=== PATIENT | female | born 1995 | race Caucasian/White ===

== ENCOUNTER 2022-03-31 20:07 | Emergency (ER) | payer MEDICAID ==
[~2022-03-31] VITALS: Ht 154.9 cm; Wt 74.8 kg
[2022-03-31 20:10] VITALS: BP_SYST 105
--- NOTE | 2022-03-31 20:14 | NUR ---
Patient triaged and placed in waiting room. VSS and patient appears in no acute distress at this time. Accompanied by DAUGHTER, awaiting available bed, and MD notified of need for MSE.
[2022-03-31 22:52] LABS: BILIRUBIN,URINE NEGATIVE (NEGATIVE); BLOOD, URINE NEGATIVE (NEGATIVE); CLARITY/URINE CLEAR (CLEAR); COLOR,URINE YELLOW (YELLOW); GLUCOSE,URINE NEGATIVE (NEGATIVE); KETONES,URINE NEGATIVE (NEGATIVE); LEUKOCYTE ESTERASE ,URINE NEGATIVE (NEGATIVE); NITRITE, URINE NEGATIVE (NEGATIVE); PROTEIN URINE NEGATIVE (NEGATIVE); UROBILINOGEN,URINE 0.2 (0.2-1.0)
--- NOTE | 2022-03-31 23:00 | NUR ---
Patient to ER bed 06 to gown for evaluation. Side rails up.
--- NOTE | 2022-03-31 23:51 | NUR ---
JUSTYNA SAXENA at bedside examining patient.
[2022-04-01] MEDS ORDERED: MAG HYDROX/AL HYDROX/SIMETH 30 ML, LIDOCAINE VISCOUS 2% 15ML (PO) 15 ML, DICYCLOMINE HC... PO ONE ×3
[2022-04-01] MEDS ORDERED: ONDANSETRON 4 MG ODT TAB PO ONE
[2022-04-01 01:26] LABS: BASOPHILS % (AUTO) 0.2 % (0.0-2.0); EOSINOPHILS # (AUTO) 0.4 K/uL (0.0-0.4); EOSINOPHILS % (AUTO) 3.5 % (0.0-4.0); HEMATOCRIT 37.1 % (36-48); HEMOGLOBIN 12.7 g/dL (12.0-16.0); LYMPHOCYTES # (AUTO) 1.6 K/uL (1.0-5.5); LYMPHOCYTES % (AUTO) 14.9 % (20.5-51.5); MEAN CORPUSCULAR HEMOGLOBIN 30 pg (27-31); MEAN CORPUSCULAR HGB CONC 34 % (32-36); MEAN CORPUSCULAR VOLUME 87 fL (79.0-98.0); MONOCYTES # (AUTO) 0.7 K/uL (0.0-1.0); MONOCYTES % (AUTO) 6.4 % (1.7-9.3); PLATELET COUNT (AUTO) 235 K/uL (130-430); RED BLOOD CELL COUNT(AUTO) 4.29 MIL/uL (4.2-6.2); RED CELL DISTRIBUTION WIDTH 12.7 % (9.0-15.0); WHITE BLOOD COUNT (AUTO) 10.7 K/uL (4.8-10.8)
[2022-04-01 01:34] LABS: CALCIUM 8.8 mg/dL (8.4-11.0); CREATININE 0.57 mg/dL (0.55-1.30)
[2022-04-01 01:40] LABS: ALBUMIN 3.9 g/dL (3.4-4.8); TOTAL BILIRUBIN 0.6 mg/dL (0.0-1.0)
[2022-04-01] MEDS ORDERED: ONDA-8 TL (02:26)
[2022-04-01] MEDS ORDERED: OMEP40CA20 PO (02:26)
[2022-04-01 02:52] VITALS: BP_SYST 98
--- NOTE | 2022-04-01 02:52 | NUR ---
Patient given written and verbal discharge instructions and verbalizes understanding. ER MD discussed with patient the results and treatment provided. Patient in stable condition. ID arm band removed. Rx of OMEPRAZOLE AND ZOFRAN given. Patient educated on pain management and to follow up with PMD. Pain Scale 0/10 Opportunity for questions provided and answered. Medication side effect fact sheet provided.
== END 2022-04-01 02:52 | disposition home or self-care (01) ==
LOC: SED 20:07
DX: K29.00 Acute gastritis without bleeding (principal); R10.13 Epigastric pain; R11.0 Nausea; Z79.899 Other long term (current) drug therapy
CPT/HCPCS: 99284; 80053; 83690; 85025; 36415; 74018; 81025; 81003; Q0162; J2001